=== PATIENT | female | born 1960 | race Caucasian/White ===

== ENCOUNTER 2017-03-21 11:47 | Emergency (ER) | payer OTHER ==
[~2017-03-21] VITALS: Ht 170.2 cm; Wt 84.1 kg
[2017-03-21 12:29] LABS: HEMATOCRIT 45.6 % (36.0-46.0); MCHC 33.3 G/DL (30.0-36.0); MCV 90.1 FL (83-99); MEAN PLAT.VOLUME 9.5 uM^3 (9.5-12.4); PLATELET COUNT 240 K/uL (156-360); RBC DIS.WIDTH-CV 12.2 % (11.8-14.6); RBC DIS.WIDTH-SD 39.6 % (39-53); RED BLOOD COUNT 5.06 M/uL (3.80-5.20); WHITE BLOOD COUNT 10.6 K/uL (4.1-10.2)
[2017-03-21 12:37] LABS: CHLORIDE 106 mEq/L (99-109); POTASSIUM 4.3 mEq/L (3.7-5.4); SODIUM 142 mEq/L (136-147)
[2017-03-21 12:38] LABS: GLUCOSE 114 mg/dL (70-99)
[2017-03-21 12:40] LABS: ANION GAP 10 MEQ/L (2-14)
[2017-03-21 12:42] LABS: GFR ESTIMATE (CALCULATED) > 59 mL/min/
[2017-03-21 12:43] LABS: UREA NITROGEN (BUN) 9 mg/dL (9-23)
[2017-03-21] MEDS ORDERED: PREDNISONE50 MG PO (15:40)
[2017-03-21] MEDS ORDERED: PROAIR RESPICL90 MCG IH (15:40)
[2017-03-21] MEDS ORDERED: AZITHROMYCIN250 MG PO (15:40)
[2017-03-21 15:41] VITALS: BP 164/89
[2017-03-21 16:01] LABS: TROP-I INTERPRETATION NEGATIVE; TROPONIN-I < 0.01 ng/mL (0.0-0.30)
== END 2017-03-21 15:55 | disposition left against medical advice (07) ==
LOC: EME 11:47
PROVIDERS: Physician Assistant Medical
DX: J20.9 Acute bronchitis, unspecified (principal); R00.0 Tachycardia, unspecified; R09.02 Hypoxemia; R07.9 Chest pain, unspecified; F17.200 Nicotine dependence, unspecified, uncomplicated
CPT/HCPCS: 71020; 80048; 84484; 85027; 99281; 99285

== ENCOUNTER 2017-10-29 21:17 | Emergency (ER) | payer OTHER ==
[~2017-10-29] VITALS: Ht 170.2 cm; Wt 86.0 kg
[~2017-10-29 21:17] MED LIST: AZITHROMYCIN250 MG PO; PREDNISONE50 MG PO; PROAIR RESPICL90 MCG IH
[2017-10-29] MEDS ORDERED: MEDROL DOSEPAK4 MG PO (23:39)
[2017-10-29 23:58] VITALS: BP 126/82
== END 2017-10-30 00:01 | disposition home or self-care (01) ==
LOC: EME 21:17
DX: L50.9 Urticaria, unspecified (principal); T63.441A Toxic effect of venom of bees, accidental (unintentional), initial encounter; J44.9 Chronic obstructive pulmonary disease, unspecified; F17.200 Nicotine dependence, unspecified, uncomplicated; Z88.1 Allergy status to other antibiotic agents
CPT/HCPCS: 99281; 99284; J1200; J2930; J7030; S0028